=== PATIENT | female | born 1985 | race Two or more races ===

== ENCOUNTER 2018-11-19 02:13 | Inpatient (IN) | payer OTHER ==
[~2018-11-19] VITALS: Ht 160 cm; Wt 78.9 kg
[2018-11-19] MEDS ORDERED: PRENATAL TABLE1 EAC4 PO (10:46)
== END 2018-11-21 11:22 | disposition home or self-care (01) | DRG 807 ==
LOC: OBS/DEL 02:13 → LDR 08:42 → OB/GYN 08:42 → LDR 09:49 → OB/GYN 22:46
PROVIDERS: ADMIT Obstetrics & Gynecology
PROC: 10E0XZZ Delivery of Products of Conception, External Approach (ICD-10-PCS; principal; 2018-11-19)
PROC: 4A0HXFZ Measurement of Products of Conception, Cardiac Rhythm, External Approach (ICD-10-PCS; 2018-11-19)
DX: O80 Encounter for full-term uncomplicated delivery (principal); Z37.0 Single live birth; Z3A.40 40 weeks gestation of pregnancy